=== PATIENT | female | born 1950 | race Caucasian/White ===

== ENCOUNTER 2019-11-08 08:23 | Day surgery (SDC) | payer MEDICARE ==
[2019-11-08] VITALS (8 sets, daily range): BP systolic 136–154; BP diastolic 42–103; PULSE 82–105; TEMP 97.3–98.2
[~2019-11-08] VITALS: Ht 172.7 cm; Wt 93.5 kg
[2019-11-08] MEDS ORDERED: SYNTHROID 0.0.025 MG PO (08:48)
[2019-11-08] MEDS ORDERED: AMITRIPTYLINE H25 M1 PO (08:48)
[2019-11-08] MEDS ORDERED: CELEXA40 MG PO (08:49)
--- NOTE | 2019-11-08 10:15 | NUR ---
Pt to GI [facility] 3 via cart from [employer]. Pt drowsy, but awake. Ambulates to recliner with stand by assistance x2. Pt made comfortable in recliner, warm blankets provided. Pt has constant cough that induces heaving and emisis. Pt also c/o abdominal pain. Abdomen soft to touch with no distention. Will continue to monitor. Call light within reach.
--- NOTE | 2019-11-08 10:30 | NUR ---
Pt continues to have coughing, nausea, and abdominal pain. O2 sats dip to 87-88% on room air when coughing and dry heaving. Auditory inspratory and expritory wheezing noted with respirations. Pt has small amounts ofclear/thick emisis. Pt c/o feeling short of breath. into see pt.
--- NOTE | 2019-11-08 10:45 | NUR ---
Albuterol treatment and nausea medication ordered at this time by .
--- NOTE | 2019-11-08 10:50 | NUR ---
Phenergan 6.25mg in NS 50ml IVPB started per orders. RT here to give breathing treatment.
--- NOTE | 2019-11-08 11:00 | NUR ---
Pt resting quietly. Coughing and dry heaving have subsided. VSS. Will continue to monitor.
--- NOTE | 2019-11-08 11:15 | NUR ---
Pt continues to sleep. Respirations even and unlabored. Call light within reach.
--- NOTE | 2019-11-08 11:45 | NUR ---
Pt eating toast and drinking coffee without difficulties. Pt denies abdominal pain or nausea at this time. Will continue to monitor.
--- NOTE | 2019-11-08 12:30 | NUR ---
Discharge instructions reviewed. Pt voices understanding. IV site discontinued with all parts intact. Pt up to dress. Call light within reach.
--- NOTE | 2019-11-08 12:40 | NUR ---
Pt escorted to private car via wheel chair. Pt accompanied home by her friend.
== END 2019-11-08 12:40 | disposition home or self-care (01) ==
LOC: SDCO 08:23
DX: Z12.11 Encounter for screening for malignant neoplasm of colon (principal); D12.0 Benign neoplasm of cecum; K63.3 Ulcer of intestine; K57.30 Diverticulosis of large intestine without perforation or abscess without bleeding; K21.9 Gastro-esophageal reflux disease without esophagitis; M19.90 Unspecified osteoarthritis, unspecified site; G43.909 Migraine, unspecified, not intractable, without status migrainosus; Z80.0 Family history of malignant neoplasm of digestive organs; Z88.0 Allergy status to penicillin; Z83.71 Family history of colonic polyps; Z90.710 Acquired absence of both cervix and uterus; Z96.641 Presence of right artificial hip joint; Z87.891 Personal history of nicotine dependence
CPT/HCPCS: J2405; J2550; J2704

== ENCOUNTER → 2022-11-27 | Outpatient (CLI) | payer MEDICARE ==
[~2022-11-27] MED LIST: AMITRIPTYLINE H25 M1 PO; CELEXA40 MG PO; SYNTHROID 0.0.025 MG PO
== END ==
LOC: COL.RAD 13:19
DX: R06.02 Shortness of breath (principal); R29.818 Other symptoms and signs involving the nervous system